=== PATIENT | male | born 1960 | race Caucasian/White ===

== ENCOUNTER → 2017-11-04 13:33 | Outpatient (CLI) | payer SELFPAY ==
--- NOTE | 2017-11-04 13:38 | ECHOD_ITS ---
Reason For Study: Murmur Procedure This was a 2D Doppler, Color Flow transthoracic echocardiogram. Exam performed in department. Left Ventricle Mildly dilated left ventricle. The estimated ejection fraction is 50 %. Stage 1 diastolic dysfunction. There is mild global hypokinesis of the left ventricle. Right Ventricle Normal size and thickness. Normal systolic function. Atria Normal left atrium. Normal right atrium. Normal atrial septum. Mitral Valve The mitral valve is structurally normal. No prolapse or stenosis seen. Tricuspid Valve Normal tricuspid valve. Trivial tricuspid valve insufficiency. Aortic Valve Trisinus/trileaflet aortic valve. Moderate focal aortic valve thickening. Moderate focal aortic valve calcification. Mild aortic stenosis. Peak aortic valve gradient 21 mmHg. Mean aortic valve gradient 12 mmHg. Mild (1+) aortic valve insufficiency. Pulmonic Valve Normal pulmonic valve. Great Vessels Normal aortic root. Normal arch. Normal inferior vena cava. Inferior vena cava collapse with sniff. Pericardium/Pleural No pericardial effusion. MMode/2D Measurements & Calculations LVIDd: 5.4 cm IVSd: 1.1 cm LVOT diam: 2.5 cm LVIDs: 3.8 cm LVPWd: 0.95 cm LVOT area: 5.1 cm2 RVDd: 2.9 cm FS: 29.6 % Ao root diam: 3.4 cm LAV(MOD-bp): 34.9 ml LA A4 area: 13.2 cm2 LA dimension: 4.3 cm LAV(MOD-bp) Indexed: 18.0 ml/m2 LAV(MOD-sp2): 36.1 ml LAV(MOD-sp4): 33.0 ml RA A4 area: 10.2 cm2 Doppler Measurements & Calculations MV E max bert: 81.9 cm/sec Lat Peak E' Bert: 6.4 cm/sec Med Peak E' Bert: 7.0 cm/sec MV A max bert: 59.5 cm/sec E/E' lat: 12.8 E/E' med: 11.8 MV E/A: 1.4 Ao V2 max: 239.6 cm/sec AI max bert: 366.7 cm/sec LV V1 max: 116.7 cm/sec Ao max P.0 mmHg AI max P.8 mmHg LV V1 max P.5 mmHg Ao V2 mean: 164.0 cm/sec AI dec slope: 145.2 cm/sec2 LV V1 mean P.1 mmHg Ao mean P.0 mmHg AI P1/2t: 739.9 msec LV V1 mean: 83.2 cm/sec Ao V2 VTI: 48.3 cm LV V1 VTI: 26.0 cm ARELIS(I,D): 2.7 cm2 ARELIS(V,D): 2.5 cm2 SV(LVOT): 131.4 ml PA V2 max: 75.5 cm/sec Interpretation Summary Mildly dilated left ventricle. The estimated ejection fraction is 50 %. Stage 1 diastolic dysfunction. There is mild global hypokinesis of the left ventricle. Trivial tricuspid valve insufficiency. Mild aortic stenosis, may be underestimated. Mild (1+) aortic valve insufficiency. Fusion between left and right coronary cusps. Consider FINN or invasive testing to assess degree of aortic stenosis. Ordering Physician: Kodak Cervantes Referring Physician: Meek Goodson Performed By: Wanda Good RDCS
== END ==
PROVIDERS: Family Provider Family Medicine; PCP Family Medicine; Visit Provider Surgery
DX: R01.1 Cardiac murmur, unspecified (principal)
CPT/HCPCS: 93306

== ENCOUNTER 2017-12-02 05:33 | Day surgery (SDC) | payer SELFPAY ==
[2017-12-02] VITALS (7 sets, daily range): BP systolic 117–132; BP diastolic 72–79; PULSE 59–66; RESP 16–18; TEMP 36.2–36.3; O2SAT 91–98; BMI 29.8
--- NOTE | 2017-12-02 06:07 | PCM.HP.STD ---
Problem List (1) Screening for intestinal cancer Status: Acute History of Present Illness Date of Admission: 12/02/17 The patient is a 57 year old M who presents today for screening colonoscopy. I did have an opportunity to see him in the office approximately 1 month ago. He has never had a previous screening colonoscopy. He otherwise enjoys stable health. He has no specific complaints today. Past Medical History Allergies No Known Allergies Allergy (Verified 12/02/17 06:04) Home Medications: Ambulatory Orders Medication Instructions Recorded NK [NK] 10/31/17 Smoking Status: Never smoker Review of Systems Constitutional: Denies: Weight Change Eyes: Denies: Blurred vision, Vision Change HEENT: Denies: Ear Pain, Eye Pain Cardiovascular: Denies: Chest Pain, Claudication Respiratory: Denies: Cough, Shortness of Breath Gastrointestinal: Denies: Hematemesis, Hematochezia Genitourinary: Denies: Dysuria, Hematuria Musculoskeletal: Denies: Leg Pain Skin: Denies: Jaundice Neurological: Denies: Confusion Psychiatric: Denies: Depression Endocrine: Denies: Change in Body Habitus Hematologic/ Lymphatic: Denies: Easy Bleeding VTE Information - Inpt Only VTE Present on Admission: No - Physical Exam General: Alert, Oriented x3, Cooperative, No apparent distress HEENT: Atraumatic Oral: Moist Mucosa Neck: Supple Lungs: Clear to auscultation Cardiovascular: Regular rate, Regular Rhythm, Murmur Abdomen: Bowel Sounds Present, Soft, Non Tender Extremities: No clubbing Skin: No rashes Musculoskeletal: No Tenderness to Palpation of Joints or Extremities Neurological: Cranial nerves II-XII grossly intact Psych/Mental Status: Normal Affect Assessment/Plan I am anticipating a screening colonoscopy today. He is aware the technique, benefits, risks, alternatives. He is aware that about the potential need for biopsies or polypectomy. We will proceed at his discretion. Primary care is Dr. Kellee Cervantes M.D., F.A.C.S.
--- NOTE | 2017-12-02 06:50 | PCM.OPRPT ---
Problem List (1) Screening for intestinal cancer Status: Acute Report of Operation Date of Procedure: 12/02/17 Pre-Operative Diagnosis: Screening for intestinal malignancy Post-Operative Diagnosis: Normal colon Surgery/Procedure Performed:: Colonoscopy Description of Surgical Findings:: Timeout and informed consent was obtained. 57-year-old gentleman was taken to the endoscopy suite. He was placed in a left lateral decubitus position. The procedure in aliquots he received a total of 100 mg Demerol and 3 mg of Versed is intravenous sedation. Digital rectal exam performed. There was a small nodule on the inferior aspect of the prostate. This prostate was mildly firm. Minimal hemorrhoidal changes. Flexible colonoscope inserted the rectum and quite readily advanced through the sigmoid colon transverse colon with transabdominal pressure was advanced to the cecum. The cecum ileocecal valve area was nicely achieved. Bowel prep was adequate. The scope was carefully withdrawn from the ascending transverse descending and sigmoid colon. Scope was retroflexed within the rectum. Minimal hemorrhoidal changes. Excess fluid and air was aspirated free the procedure was completed with the patient tolerating it well. It is of note that the amplify device was used. Impression Normal colon. This was the patient's first screening colonoscopy. Recommend follow-up screening colonoscopy in 10 years Cc: Dr. Goodson Scope was inserted 0636. The cecum was reached at [id number]. Procedure was completed at 0647 Kodak Cervantes M.D., F.A.C.S. Type of Anesthesia:: IV Sedation
== END 2017-12-02 07:55 | disposition home or self-care (01) ==
LOC: EN 05:40 → AC 05:40
PROVIDERS: Family Provider Family Medicine; PCP Family Medicine; Visit Provider Surgery
PROC: 0DJD8ZZ Inspection of Lower Intestinal Tract, Via Natural or Artificial Opening Endoscopic (ICD-10-PCS; CPT 45378; principal; 2017-12-02 06:25)
DX: Z12.11 Encounter for screening for malignant neoplasm of colon (principal); Z80.0 Family history of malignant neoplasm of digestive organs; N40.2 Nodular prostate without lower urinary tract symptoms; K64.9 Unspecified hemorrhoids
CPT/HCPCS: 45378; 99152; 99153; J7120

== ENCOUNTER → 2017-12-30 13:25 | Outpatient (CLI) | payer SELFPAY ==
--- NOTE | 2017-12-30 13:26 | STEWCON_ITS ---
Reason For Study: Bicuspid Aortic Valve, Aortic Stenosis, Chest Pain Stress Results Protocol: Jevon Protocol Maximum Predicted HR: 162 bpm Target HR: 138 bpm% Max imum Predicted HR: 97 % DurationHeart Rate Stage (mm:ss) (bpm) BPCom ment Baseline 77 150/80 Definity 2 ML Given Diluted; No Chest Pain Jevon Protocol Stage I 3:00 11 2 160/78No Chest Pain Jevon Protocol Stage II 3:00 13 7 182/78No Chest Pain; Mild Dyspnea Jevon Protocol Stage III 2:00 15 7 / No Chest Pain; Mild to Moderate Dyspnea Recovery 81 138/84 Stress Duration: 8:00 mm:ss Maximum Stress HR: 157 bpmM ETS: 10 Baseline Echocardiogram Findings The estimated ejection fraction is 60 %. Stress Echo Wall motion Data Resting WMIntermediate WMStress WM Resting Wall Motion Wall Motion Stress No regional wall motion No regional wall motion abnormalities noted. abnormalities noted. EKG Data The baseline ECG demonstrates normal sinus rhythm with at rate of _ beats per minute. The patient exercised according to the regular Jevon protocol for a total duration of 8:00. The maximum heart rate attained was 169 beats per minute. This was 104% of maximum predicted heart rate. The patient exercised into stage 3 of the Jevon protocol. During stress, there were no ST or T wave changes noted to suggest ischemia. No clinical angina was noted. No arrhythmias noted. Interpretation Summary The study was technically difficult. Contrast injection was performed. The estimated ejection fraction is 60 %. Normal adequate treadmill echocardiogram. Negative for ischemia by EKG and echocardiographic criteria. No anginal symptoms noted. No arrhythmias noted. Appropriate blood pressure response to exercise. Average exercise capacity for age. Patient had a resting peak/mean aortic valve gradient of 22/12 mmHg. At peak exercise his aortic valve gradients were 54/26 mmHg peak/mean respectively. Final LVEF is 75%. No complications. Doppler Measurements & Calculations Ao V2 max: 352.5 cm/sec Ao max P.8 mmHg Ao V2 mean: 241.8 cm/sec Ao mean P.5 mmHg Ao V2 VTI: 56.3 cm Ordering Physician: Boris Mcgee Referring Physician: Boris Mcgee Performed By: Wanda Good RDCS
== END ==
PROVIDERS: Family Provider Family Medicine; PCP Family Medicine; Visit Provider Internal Medicine Cardiovascular Disease
DX: I35.1 Nonrheumatic aortic (valve) insufficiency (principal); I35.0 Nonrheumatic aortic (valve) stenosis; R07.9 Chest pain, unspecified; R42 Dizziness and giddiness
CPT/HCPCS: 93017; 93350; Q9957; A4216; C8928

== ENCOUNTER → 2019-02-07 07:45 | Outpatient (CLI) | payer SELFPAY ==
[2019-01-08 15:04] VITALS: BMI 31.1
--- NOTE | 2019-02-07 07:58 | ECHOCS_ITS ---
Reason For Study: Bicuspid AV Procedure This was a 2D Doppler, Color Flow transthoracic echocardiogram. The study was technically difficult. Exam performed in department. Left Ventricle Mildly dilated left ventricle. The estimated ejection fraction is 50 %. Stage 1 diastolic dysfunction. There is mild global hypokinesis of the left ventricle. Right Ventricle Normal size and thickness. Normal systolic function. Atria Normal left atrium. Normal right atrium. Normal atrial septum. Mitral Valve The mitral valve is structurally normal. No prolapse or stenosis seen. Tricuspid Valve Normal tricuspid valve. Unable to estimate RV systolic pressure due to insufficient tricuspid regurgitant envelope. Aortic Valve Moderate focal aortic valve thickening. Mild focal aortic valve calcification. Functionally bicuspid aortic valve with probable fusion b/w left and right coronary cusps. (previously noted.). Mild aortic stenosis. Mild (1+) aortic valve insufficiency. Pulmonic Valve Normal pulmonic valve. Trivial pulmonic valve insufficiency. Great Vessels Normal aortic root. Normal arch. Normal inferior vena cava. Inferior vena cava collapse with sniff. Pericardium/Pleural No pericardial effusion. Medication 22 gauge I.V. with prn adaptor inserted into right arm. Diluted definity 3ml given slow IV push to enhance endocardial definition. MMode/2D Measurements & Calculations LVIDd: 5.4 cm IVSd: 1.1 cm LVOT diam: 2.5 cm LVIDs: 3.6 cm LVPWd: 1.1 cm RVDd: 3.5 cm FS: 33.3 % LVOT area: 4.8 cm2 Ao root diam: 3.7 cm LAV(MOD-bp): 34.7 ml LA A4 area: 15.2 cm2 LAV(MOD-bp) Indexed: 17.9 ml/m2 LAV(MOD-sp2): 28.5 ml LAV(MOD-sp4): 42.1 ml LA dimension(2D): 3.4 cm RA A4 area: 11.1 cm2 Doppler Measurements & Calculations MV E max bert: 62.6 cm/sec Lat Peak E' Bert: 6.5 cm/sec Med Peak E' Bert: 6.5 cm/sec MV A max ebrt: 61.1 cm/sec E/E' lat: 9.6 E/E' med: 9.7 MV E/A: 1.0 Ao V2 max: 232.5 cm/sec AI max bert: 349.4 cm/sec LV V1 max: 120.1 cm/sec Ao max P.7 mmHg AI max P.9 mmHg LV V1 max P.8 mmHg Ao V2 mean: 161.2 cm/sec AI dec slope: 115.9 cm/sec2 LV V1 mean P.3 mmHg Ao mean P.4 mmHg AI P1/2t: 883.4 msec LV V1 mean: 87.3 cm/sec Ao V2 VTI: 53.1 cm LV V1 VTI: 27.7 cm ARELIS(I,D): 2.5 cm2 ARELIS(V,D): 2.5 cm2 SV(LVOT): 132.4 ml PA V2 max: 79.1 cm/sec Interpretation Summary Mildly dilated left ventricle. The estimated ejection fraction is 50 %. Stage 1 diastolic dysfunction. There is mild global hypokinesis of the left ventricle. Unable to estimate RV systolic pressure due to insufficient tricuspid regurgitant envelope. Functionally bicuspid aortic valve with probable fusion b/w left and right coronary cusps. (previously noted.) Mild aortic stenosis. Mild (1+) aortic valve insufficiency. Compared to echo report dated 11/04/2017, no appreciable changes noted. The study was technically difficult. Contrast injection was performed. Ordering Physician: Boris Mcgee Referring Physician: Meek Goodson Performed By: Wanda Good RDCS
== END ==
PROVIDERS: Family Provider Family Medicine; PCP Family Medicine; Referring Provider Internal Medicine Cardiovascular Disease; Visit Provider Internal Medicine Cardiovascular Disease
DX: I35.0 Nonrheumatic aortic (valve) stenosis (principal)
CPT/HCPCS: 93306; Q9957; A4216; C8929

== ENCOUNTER → 2019-09-18 09:01 | Outpatient (CLI) | payer SELFPAY, OTHER ==
[2019-08-31 11:48] VITALS: BMI 32.3
--- NOTE | 2019-09-18 09:03 | STEWCON_ITS ---
Reason For Study: Valve Replacement-Eval Stress Results Protocol: Jevon Protocol WITH DEFINITY Maximum Predicted HR: 160 bpm Target HR: 136 bpm % Maximum Predicted HR: 86 % DurationHeart Rate Stage (mm:ss) (bpm) BP Comment Baseline 57 116/80No Chest Pain; 2 ML Diluted Definity Given Jevon Protocol Stage I 3:00 92 130/78No Chest Pain Jevon Protocol Stage II 3:00 110 146/74No Chest Pain Jevon Protocol Stage III 3:00 133 150/72No Chest Pain; Mild Dyspnea Jevon Protocol Stage IV 0:15 137 / No Chest Pain; Mild Dyspnea Recovery 67 124/72No Chest Pain Stress Duration: 9:15 mm:ss Maximum Stress HR: 137 bpm METS: 10 Baseline Echocardiogram Findings The estimated ejection fraction is 65 %. Stress Echo Wall motion Data Resting WM Intermediate WM Stress WM Resting Wall Motion Wall Motion Stress No regional wall motion No regional wall motion abnormalities noted. abnormalities noted. EKG Data The baseline ECG displays normal sinus rhythm. The patient exercised according to the regular Jevon protocol for a total duration of 9:15. The maximum heart rate attained was 139 beats per minute. This was 86% of maximum predicted heart rate. The patient exercised into stage 4 of the Jevon protocol. During stress, there were no ST or T wave changes noted to suggest ischemia. No clinical angina was noted. Doppler Measurements & Calculations Ao V2 max: 369.0 cm/sec Ao max P.5 mmHg Ao V2 mean: 249.0 cm/sec Ao mean P.8 mmHg Ao V2 VTI: 68.3 cm Interpretation Summary The estimated ejection fraction is 65 %. Normal, adequate, treadmill echocardiogram. Negative for ischemia by EKG and echocardiographic anterior. No anginal symptoms noted. Rare PACs noted. Appropriate blood pressure response to exercise. Average exercise capacity for age. Test terminated due to target heart rate and fatigue. Final LVEF is 75%. Baseline aortic valve gradient of 25/15 mmHg respectively. Aortic valve peak/mean gradient at peak exercise found to be 53/30 mmHg respectively. Decrease sensitivity due to poor echo windows requiring Definity agent. Patient tolerate procedure well. No complications. The study was technically difficult. Contrast injection was performed. Ordering Physician: Boris Mcgee Referring Physician: Boris Mcgee Performed By: Corinna Chong, SLY, RVT
== END ==
PROVIDERS: Family Provider Family Medicine; PCP Family Medicine; Referring Provider Internal Medicine Cardiovascular Disease; Visit Provider Internal Medicine Cardiovascular Disease
DX: Z01.810 Encounter for preprocedural cardiovascular examination (principal); I35.2 Nonrheumatic aortic (valve) stenosis with insufficiency
CPT/HCPCS: 93017; 93350; Q9957; A4216; C8928

== ENCOUNTER → 2020-04-11 13:38 | Outpatient (CLI) | payer SELFPAY ==
[2020-04-03 08:43] VITALS: BMI 31.6
--- NOTE | 2020-04-11 13:39 | ECHOCS_ITS ---
Reason For Study: VALVE REPLACEMENT EVAL Procedure This was a 2D Doppler, Color Flow transthoracic echocardiogram. Exam performed in department. Left Ventricle Normal size and thickness. The estimated ejection fraction is 65 %. Stage 1 diastolic dysfunction. No regional wall motion abnormalities noted. Right Ventricle Normal size and thickness. Normal systolic function. Atria Normal left atrium. Normal right atrium. Normal atrial septum. Mitral Valve The mitral valve is structurally normal. No prolapse or stenosis seen. Tricuspid Valve Normal tricuspid valve. Unable to estimate RV systolic pressure due to insufficient tricuspid regurgitant envelope. Aortic Valve Functionally bicuspid aortic valve with fusion between the right and left coronary cusps, previously noted. Mild aortic stenosis. Mild (1+) aortic valve insufficiency. Pulmonic Valve Normal pulmonic valve. Great Vessels Normal aortic root. Normal arch. Normal inferior vena cava. Inferior vena cava collapse with sniff. Pericardium/Pleural No pericardial effusion. Medication 22 gauge I.V. with prn adaptor inserted into right arm. Diluted definity 4ml given slow IV push to enhance endocardial definition. MMode/2D Measurements & Calculations LVIDd: 4.9 cm IVSd: 1.0 cm LVOT diam: 2.4 cm LVIDs: 3.5 cm LVPWd: 1.0 cm RVDd: 3.5 cm FS: 27.8 % LVOT area: 4.7 cm2 Ao root diam: 3.6 cm LAV(MOD-sp2): 57.6 ml LVAd ap4: 35.8 cm2 EDV(MOD-sp4): 119.9 ml EDV(sp4-el): 125.3 ml LVAs ap4: 18.5 cm2 ESV(MOD-sp4): 42.5 ml ESV(sp4-el): 43.7 ml EF(MOD-sp4): 64.6 % EF(sp4-el): 65.1 % SV(MOD-sp4): 77.4 ml SV(sp4-el): 81.6 ml LA dimension(2D): 3.8 cm Time Measurements MV dec time: 0.17 sec Doppler Measurements & Calculations MV E max bert: 66.1 cm/sec Lat Peak E' Bert: 9.6 cm/sec Med Peak E' Bert: 10.1 cm/sec MV A max bert: 70.7 cm/sec E/E' lat: 6.9 E/E' med: 6.5 MV E/A: 0.94 Ao V2 max: 255.4 cm/sec AI max bert: 362.8 cm/sec LV V1 max: 81.2 cm/sec Ao max P.1 mmHg AI max P.6 mmHg LV V1 max P.6 mmHg Ao V2 mean: 175.9 cm/sec AI dec slope: 135.5 cm/sec2 LV V1 mean P.5 mmHg Ao mean P.7 mmHg AI P1/2t: 784.1 msec LV V1 mean: 58.4 cm/sec Ao V2 VTI: 51.1 cm LV V1 VTI: 20.7 cm ARELIS(I,D): 1.9 cm2 ARELIS(V,D): 1.5 cm2 SV(LVOT): 96.1 ml PA V2 max: 90.3 cm/sec Interpretation Summary The estimated ejection fraction is 65 %. Stage 1 diastolic dysfunction. Unable to estimate RV systolic pressure due to insufficient tricuspid regurgitant envelope. Functionally bicuspid aortic valve with fusion between the right and left coronary cusps, previously noted. Mild aortic stenosis. Mild (1+) aortic valve insufficiency. Compared to previous echocardiogram dated 02/07/2019, no appreciable changes noted. The study was technically difficult. Contrast injection was performed. Ordering Physician: Boris Mcgee Referring Physician: NELLY CAMACHO Performed By: Skylar Bergman RDCS
== END ==
PROVIDERS: PCP Family Medicine; Referring Provider Internal Medicine Cardiovascular Disease; Visit Provider Internal Medicine Cardiovascular Disease
DX: I35.0 Nonrheumatic aortic (valve) stenosis (principal); I35.1 Nonrheumatic aortic (valve) insufficiency
CPT/HCPCS: 93306; Q9957; A4216; C8929

== ENCOUNTER → 2023-08-23 | Outpatient (CLI) | payer SELFPAY ==
--- NOTE | 2023-08-23 08:07 | ECHOCS_ITS ---
Reason For Study: Bicuspid AV Procedure This was a 2D Doppler, Color Flow transthoracic echocardiogram. The study was technically difficult. Exam performed in department. Left Ventricle Normal LV size. Left ventricular systolic function is lower limits of normal. The estimated ejection fraction is 50 %. No regional wall motion abnormalities noted. Right Ventricle Normal RV size. Normal systolic function. Atria Normal left atrium. Normal right atrium. Mitral Valve Normal mitral valve. Tricuspid Valve Normal tricuspid valve. Aortic Valve Thickened functionally bicuspid aortic valve. Peak aortic valve gradient 29 mmHg. Mean aortic valve gradient 16 mmHg. Mild aortic stenosis. Mild (1+) aortic valve insufficiency. Pulmonic Valve Normal pulmonic valve. Great Vessels Normal aortic root. The pulmonary artery is normal size. Normal inferior vena cava. Pericardium/Pleural No pericardial effusion. Medication 22 gauge I.V. with prn adaptor inserted into right arm. Diluted definity 2.0ml given slow IV push to enhance endocardial definition. MMode/2D Measurements & Calculations LVIDd: 5.4 cm IVSd: 1.0 cm LVOT diam: 2.4 cm LVIDs: 3.9 cm LVPWd: 1.0 cm RVDd: 2.7 cm FS: 26.9 % LVOT area: 4.4 cm2 Ao root diam: 3.7 cm LAV(MOD-bp): 43.8 ml LVAd ap4: 35.9 cm2 LAV(MOD-bp) Indexed: 22.4 ml/m2 LVLd ap4: 7.7 cm LAV(MOD-sp2): 47.5 ml EDV(MOD-sp4): 142.1 ml LAV(MOD-sp4): 38.0 ml EDV(sp4-el): 143.4 ml LVAs ap4: 24.6 cm2 LVLs ap4: 7.0 cm ESV(MOD-sp4): 73.3 ml ESV(sp4-el): 73.6 ml EF(MOD-sp4): 48.4 % EF(sp4-el): 48.7 % LVAd ap2: 30.1 cm2 SV(MOD-sp4): 68.8 ml SV(MOD-sp2): 39.9 ml LVLd ap2: 7.5 cm EDV(MOD-sp2): 102.2 ml EDV(sp2-el): 102.1 ml LVAs ap2: 22.8 cm2 LVLs ap2: 7.1 cm ESV(MOD-sp2): 62.3 ml ESV(sp2-el): 62.3 ml EF(MOD-sp2): 39.0 % SV(sp4-el): 69.9 ml LA dimension(2D): 4.2 cm LA A4 area: 14.9 cm2 RA A4 area: 12.5 cm2 TAPSE: 2.1 cm Time Measurements MV dec time: 0.16 sec Doppler Measurements & Calculations MV E max bert: 66.9 cm/sec Lat Peak E' Bert: 7.9 cm/sec Med Peak E' Bert: 7.5 cm/sec MV A max bert: 62.2 cm/sec E/E' lat: 8.5 E/E' med: 8.9 MV E/A: 1.1 Ao V2 max: 271.0 cm/sec AI max bert: 395.6 cm/sec MV dec slope: 426.6 cm/sec2 Ao max P.4 mmHg AI max P.6 mmHg Ao V2 mean: 192.2 cm/sec Ao mean P.2 mmHg AI dec slope: 160.7 cm/sec2 Ao V2 VTI: 56.3 cm AI P1/2t: 721.1 msec AV (velocity ratio): 0.43 ARELIS(I,D): 1.9 cm2 ARELIS(V,D): 1.7 cm2 LV V1 max: 105.4 cm/sec SV(LVOT): 106.8 ml PA V2 max: 81.1 cm/sec LV V1 max P.5 mmHg LV V1 mean P.7 mmHg LV V1 mean: 78.4 cm/sec LV V1 VTI: 24.4 cm ECHO/Echo Complete W/ Contrast Interpretation Summary Normal LV size. Left ventricular systolic function is lower limits of normal. The estimated ejection fraction is 50 %. Thickened functionally bicuspid aortic valve. Mean aortic valve gradient 16 mmHg. Mild (1+) aortic valve insufficiency. Mild aortic stenosis. Ordering Physician: Jefe Jimenez Referring Physician: Meek Goodson Performed By: Wanda Good, [facility]
== END | disposition home or self-care (01) ==
PROVIDERS: PCP Family Medicine; Visit Provider Internal Medicine Cardiovascular Disease
DX: Q23.0 Congenital stenosis of aortic valve (principal)
CPT/HCPCS: 93306; Q9957; A4216; C8929

== ENCOUNTER 2024-01-18 07:28 | Day surgery (SDC) | payer SELFPAY, OTHER ==
[2024-01-18] MEDS: Lactated Ringers 1,000 ML 15 ML IV (08:14)
[2024-01-18 08:15] VITALS: BP 145/76; PULSE 58; RESP 16; TEMP 36.4; O2SAT 98; BMI 30.9
--- NOTE | 2024-01-18 08:32 | PCM.HP.STD ---
[facility] - General General Date of Admission: 01/18/24 Date of Service: 01/18/24 Chief Complaint: Screening colonoscopy [facility] Narrative JOHN FLYNN, is a 63 M who presents today for screening colonoscopy. Colonoscopy several years ago. No history of polyps. He comes in a 5-year surveillance and due to his first-degree relative and his brother get diagnosed with colon cancer. 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 He is being followed by cardiology. He denies any chest pain or shortness of breath. [facility] Medical History Wears hearing aid Wears glasses Arthritis Former smoker Normal stress echocardiogram History of echocardiogram Cardiology follow-up encounter Family hx of colon cancer Aortic stenosis with bicuspid valve Anxiety Screening for intestinal cancer Home Medications ?Medication ?Instructions ?Recorded ?Last Taken ?Type cholecalciferol (vitamin D3) 125 10,000 unit PO DAILY 01/17/24 01/17/24 History mcg (5,000 unit) tablet (Vitamin D3) Allergy/AdvReac Type Severity Reaction Status Date / Time No Known Allergies Allergy Verified 01/18/24 07:57 Family History Brother Colon cancer Mother Heart disease Valvular heart disease Surgical History Hx of colonoscopy No significant past surgical history Social History (Updated 11/29/23 @ 11:18 by Mimi Arciniega) household members: spouse current occupational status: employed Smoking Status: Former smoker quit date: 08/22/94 alcohol intake: never substance use type: does not use darrel/scientologist: [employer] ROS Review of Systems ROS Unobtainable: other Constitutional Constitutional: Denies fatigue, fever(s), poor appetite, weight gain or weight loss ENT HEENT: Denies mouth lesions Cardiovascular Cardiovascular: Denies abdominal bloating, abdominal edema or abdominal pain Respiratory/Chest Respiratory/Chest: Denies change in mental status, change in phlegm color, chest congestion or chest tightness Gastrointestinal Gastrointestinal: Denies belching, bloating, change in bowel habits, change in stool character, chewing difficulty, coffee ground emesis, constipation, cramping, diarrhea, dyspepsia, dysphagia, early satiety, excessive flatus, fecal incontinence, heartburn, hematemesis, hematochezia, hemorrhoids, loose stools, melena, nausea, odynophagia, rectal bleeding, tenesmus, vomiting or weight changes Genitourinary Genitourinary: Denies abdominal discomfort, burning urination or itching Musculoskeletal Musculoskeletal: Reports as per HPI; Denies muscle weakness or myalgias Integumentary Integumentary: Denies jaundice Neurologic Neurologic: Denies lack of coordination or weakness Psychiatric Psychiatric: Denies confusion, depression, memory loss, mood swings, paranoia or suicidal ideation Endocrine Endocrinology: Denies systems reviewed and no addt'l complaints, except as documented Hematologic/Lymphatic Hematologic/Lymphatic: Denies anemia, easy bleeding, easy bruising or lymphadenopathy Allergic/Immunologic Allergic/Immunologic: Denies systems reviewed and no addt'l complaints, except as documented Vital Signs Vital Signs Vital Signs: 01/18/24 08:15 01/18/24 08:15 Temperature 97.6 F L Temperature Source Temporal Pulse Rate 58 L Respiratory Rate 16 Respiratory Pattern Normal Blood Pressure 145/76 H Blood Pressure Mean 99 Blood Pressure Source Monitor Blood Pressure Position Semi-Fowlers Blood Pressure Location Left Arm Pulse Ox 98 Oxygen Delivery Method Room Air Weight Weight: 180 lb 5.41 oz Body Mass Index (BMI) 30.9 Physical Exam Const alert General Appearance: cooperative Orientation / Consciousness: oriented to person HEENT hearing grossly normal bilaterally Head and Scalp: normal to inspection Face and Sinus: face symmetric Nose: external nose normal Mouth: oral and palatal mucosa normal Eyes conjunctivae normal General Eye: normal appearance of both eyes Neck full ROM General: normal visual inspection Lymph Lymphatic: no lymphadenopathy noted Chest inspection of chest normal and palpation of chest normal Chest: symmetrical chest wall rise Resp normal respiratory effort Effort and Inspection: able to speak in complete sentences Cardio regular rate GI non-distended Percussion: normal to percussion Rectal Exam: deferred Neuro Speech: speech normal Gait (Neuro): normal gait Assessment & Plan Assessment/Plan (1) Encounter for screening for malignant neoplasm of colon: PLAN: He was explained alternatives, risk, benefits including not withstanding bleeding, infection, sepsis, perforation, need for emergent surgery and . He will have an ASA of 3.
[2024-01-18 09:06] VITALS: BP 118/76; BP 145/76; PULSE 64; RESP 14; TEMP 37; O2SAT 98
--- NOTE | 2024-01-18 09:07 | OP.CCLET_ITS ---
01/18/2024 Meek Goodson Re : Colonoscopy procedure for Boris Yo Dear Kellee This procedure was performed on Thursday, January 18, 2024. My impressions and recommendations are as follows: Impressions : - Diverticulosis in the recto-sigmoid colon and in the sigmoid colon. - The examination was otherwise normal on direct and retroflexion views. - No specimens collected. Recommendations : - Discharge patient to home. - Resume previous diet. - Continue present medications. - Repeat colonoscopy in 5 years for screening purposes. My findings are described in the full procedure note, which is enclosed. If I can be of further assistance, please feel free to contact me at . Sincerely, Roly El, 01/18/2024 9:06:52 AM This report has been signed electronically.
--- NOTE | 2024-01-18 09:07 | OP.COLON_ITS ---
Patient Name: Boris Yo Procedure Date: 01/18/2024 8:35 AM Date of : 1960 Age: 63 Procedure: Colonoscopy Indications: Screening for colorectal malignant neoplasm Providers: Roly El DO Medicines: Monitored Anesthesia Care Patient Profile: This is a 63 year old male. Refer to note in patient chart for documentation of history and physical. Last Colonoscopy: 5 years ago. Complications: No immediate complications. Procedure: Pre-Anesthesia Assessment: - Prior to the procedure, a History and Physical was performed, and patient medications and allergies were reviewed. The patient is competent. The risks and benefits of the procedure and the sedation options and risks were discussed with the patient. All questions were answered and informed consent was obtained. Patient identification and proposed procedure were verified by the physician. Mental Status Examination: normal. Airway Examination: normal oropharyngeal airway and neck mobility. CV Examination: normal. Prophylactic Antibiotics: The patient does not require prophylactic antibiotics. Prior Anticoagulants: The patient has taken no anticoagulant or antiplatelet agents. ASA Grade Assessment: II - A patient with mild systemic disease. After reviewing the risks and benefits, the patient was deemed in satisfactory condition to undergo the procedure. The anesthesia plan was to use monitored anesthesia care (MAC). Immediately prior to administration of medications, the patient was re-assessed for adequacy to receive sedatives. The heart rate, respiratory rate, oxygen saturations, blood pressure, adequacy of pulmonary ventilation, and response to care were monitored throughout the procedure. The physical status of the patient was re-assessed after the procedure. After I obtained informed consent, the scope was passed under direct vision. Throughout the procedure, the patient's blood pressure, pulse, and oxygen saturations were monitored continuously. The colonoscope was introduced through the anus and advanced to the cecum, identified by appendiceal orifice and ileocecal valve. The colonoscopy was performed without difficulty. The patient tolerated the procedure well. The quality of the bowel preparation was adequate. The ileocecal valve, appendiceal orifice, and rectum were photographed. Scope In: 8:52:05 AM Scope Withdrawal Time 0 hours 7 minutes 11 seconds Scope Out: 9:01:40 AM Total Procedure Duration Time 0 hours 9 minutes 35 seconds Findings: The perianal and digital rectal examinations were normal. A few small-mouthed diverticula were found in the recto-sigmoid colon and sigmoid colon. The exam was otherwise without abnormality on direct and retroflexion views. Impression: - Diverticulosis in the recto-sigmoid colon and in the sigmoid colon. - The examination was otherwise normal on direct and retroflexion views. - No specimens collected. Recommendation: - Discharge patient to home. - Resume previous diet. - Continue present medications. - Repeat colonoscopy in 5 years for screening purposes. Procedure Code(s): --- Professional --- G0121, Colorectal cancer screening; colonoscopy on individual not meeting criteria for high risk CPT copyright 2021 [employer]. All rights reserved. The codes documented in this report are preliminary and upon medical records coder review may be revised to meet current compliance requirements. Roly El DO 01/18/2024 9:06:52 AM This report has been signed electronically. Number of Addenda: 0 Note Initiated On: 01/18/2024 8:35 AM
[2024-01-18 09:10] VITALS: BP 111/76; BP 145/76; PULSE 60; RESP 14; O2SAT 97
[2024-01-18 09:15] VITALS: BP 117/75; BP 145/76; PULSE 64; RESP 14; O2SAT 97
[2024-01-18 09:20] VITALS: BP 122/74; BP 145/76; PULSE 61; RESP 16; TEMP 36.7; O2SAT 95
[2024-01-18 09:34] VITALS: BP 145/76
== END 2024-01-18 09:48 | disposition home or self-care (01) ==
LOC: EN 07:44 → AC 07:44
PROVIDERS: PCP Family Medicine; Referring Provider Family Medicine; Visit Provider Internal Medicine Gastroenterology
PROC: 0DJD8ZZ Inspection of Lower Intestinal Tract, Via Natural or Artificial Opening Endoscopic (ICD-10-PCS; CPT 45378; principal; 2024-01-18 08:25)
DX: Z12.11 Encounter for screening for malignant neoplasm of colon (principal); K57.30 Diverticulosis of large intestine without perforation or abscess without bleeding; Z87.891 Personal history of nicotine dependence; Z80.0 Family history of malignant neoplasm of digestive organs
CPT/HCPCS: 45378; J2405